=== PATIENT | male | born 1990 | race African-American/Black ===

== ENCOUNTER 2018-03-05 13:49 | Emergency (ER) | payer BC ==
[~2018-03-05] VITALS: Ht 177.8 cm; Wt 79.4 kg
--- OUTSIDE RECORDS SUMMARY | 2018-03-05 13:52 | XMS REPORT ---
Author Author [facility] Address Unknown Phone Unavailable Care Team Providers Care Marriage Counselor Minister Name Role Phone Carol ADEN Unavailable Unavailable Problems This patient has no known problems. Allergies, Adverse Reactions, Alerts This patient has no known allergies or adverse reactions. Medications This patient has no known medications. Results Test Description Test Time Test Comments Text Results Atomic Results Result Comments CHEST 2 VIEWS [place] [address] Patient Name: BRANDI SALMON MR #: [id number] : 1990 Age/Sex: 27/M Req #: [id number] Adm Physician: Ordered by: BRAD ADEN MD Report #: [id number] Location: ER Room/Bed: Procedure: [id number] DX/CHEST 2 VIEWS Exam Date: 01/31/17 Exam Time: 726 REPORT STATUS: Signed EXAMINATION: CHEST 2 VIEWS 01/31/2017 7:17 AM COMPARISON: 02/16/2013 INDICATION: Dyspnea DISCUSSION: LINES: None. LUNGS: The lungs are well inflated. There is mild bronchial wall thickening, particularly in the right upper lung. PLEURA: No pleural effusion or pneumothorax. HEART AND MEDIASTINUM: The cardiomediastinal silhouette is unremarkable. BONES AND SOFT TISSUES: No acute osseous lesion. The soft tissues are normal. IMPRESSION: Mild bronchial wall thickening in the right upper lung. Recommend follow-up radiographs to exclude early infection. No focal consolidation. Marcos Alvares MD Signed by: Dr. Marcos Alvares M.D. on 01/31/2017 8:13 AM Dictated By: MARCOS ALVARES MD 2 Transcribed By: BRODIE on 01/31/17812 COPY TO: BRAD ADEN MD
[2018-03-05] MEDS ORDERED: TETANUS/DIPHTHERIA TOX ADULT 0.5 ML SYR IM STA (14:07)
[2018-03-05] MEDS ORDERED: MUPIROCIN 2% OINT 22 GM TUBE TOP ONE (14:15)
[2018-03-05] MEDS ORDERED: LIDOCAINE HCL 1% LOCAL INJ 20 ML VIAL INJ ONE (15:00)
[2018-03-05] MEDS ORDERED: ACETAMINOPHEN 325 MG TAB PO ONE (15:00)
[2018-03-05] MEDS ORDERED: IBUPROFEN 200 MG TAB PO ONE (15:00)
[2018-03-05] MEDS ORDERED: ONDANSETRON HCL 4 MG ORAL DISINTEGRATING TAB PO ONE (15:00)
[2018-03-05 16:14] VITALS: BP 145/97
[2018-03-05] MEDS ORDERED: NEOMYCIN/POLYMYX/BACITR OINT 0.9 GM PKT TOP ONE (16:30)
== END 2018-03-05 16:45 | disposition home or self-care (01) ==
LOC: ER 13:49
DX: S61.212A Laceration without foreign body of right middle finger without damage to nail, initial encounter (principal); W25.XXXA Contact with sharp glass, initial encounter; Y92.810 Car as the place of occurrence of the external cause; Z23 Encounter for immunization
CPT/HCPCS: 12002; 90471; 90714; 99283; J2001